=== PATIENT | female | born 1980 | race Caucasian/White ===

== ENCOUNTER 2022-07-08 11:24 | Emergency (ER) | payer OTHER, SELFPAY ==
[2022-07-08] VITALS (9 sets, daily range): BP systolic 112–146; BP diastolic 74–90; PULSE 74–79; RESP 16; TEMP 37.1; O2SAT 99–100
--- NOTE | ~2022-07-08 | CT_ITS ---
EXAMINATION: CT brain wo con DATE: 07/08/2022 15:00 INDICATION: Head injury. Altered mental status. TECHNIQUE: Computed tomography (CT) of the head was performed without intravenous contrast. The mA wa s adjusted according to patient size. Iterative reconstruction technique was employed. The dose-lengt h product was 529.67 mGy-cm. COMPARISON: Head CT 02/15/2011 FINDINGS: There is no intracranial hemorrhage, acute infarction, or abnormal intracranial mass lesion . The ventricles are normal in size. There is mucosal thickening in the paranasal sinuses. The orbits are normal. The mastoid air cells are normal. IMPRESSION: 1. Normal brain. Reviewed, dictated and finalized at location A. IMPRESSION: 1. Normal brain.
--- NOTE | 2022-07-08 11:57 | ED.HEATRA ---
HPI - Head Injury General Chief complaint: Head Injury Stated complaint: head injury Time Seen by Provider: 07/08/22 11:43 History of Present Illness HPI Narrative: 42-year-old female here with her daughter for evaluation of confusion. Patient was hit in the forehead with a broom by her toddler nephew very lightly yesterday and states that since then she has felt confused and disoriented. Patient's daughter states that she called 911 and patient was evaluated at [facility] yesterday. She had an EKG and a head CT that was normal. Patient states that she has been confused since then, not knowing her name or where she is. Also notes nausea but no vomiting. No fevers, chills, abdominal pain, dysuria, urgency, frequency, visual changes. Related Data Allergies Allergy/AdvReac Type Severity Reaction Status Date / Time No Known Allergies Allergy Verified 07/08/22 11:30 Review of Systems Review of Systems: Gen: Denies fevers or chills Eyes: Denies eye pain or visual change ENT: Denies congestion Respiratory: Denies shortness of breath or cough CV: Denies chest pain or palpitations GI: Reports nausea. Denies abdominal pain emesis or diarrhea : denies burning, urgency, frequency or hematuria Musculoskeletal: Denies back pain or muscle pain Neuro: Reports confusion. Denies numbness, tingling, weakness or focal weakness Skin: Denies rash Except as documented, all other systems reviewed and negative Exam Narrative: APPEARANCE: Well appearing, no pain in distress, well-nourished. Head: Normocephalic and atraumatic. EYES: PERRLA/EOMI, conjunctivae clear NOSE: No nasal drainage EARS: External ear normal in appearance THROAT: Oropharynx is clear. Mucous membranes are moist. NECK: Supple. No adenopathy, no masses. RESPIRATORY: Airway patent, respirations nonlabored. Clear to auscultation bilaterally, no rales, rhonchi, wheezing. CARDIOVASCULAR: Regular rate and rhythm without murmurs, rubs, or gallops. ABDOMINAL: Normoactive bowel sounds. Soft, nontender, nondistended. No rebound tenderness or guarding. MUSCULOSKELETAL: Extremities are warm and well-perfused. Moves all extremities well. No edema. NEURO: Alert and oriented x2, patient repeatedly asking where she is. Becomes tearful with questioning. Normal speech. Cranial nerves II through XII intact. [id number] normal. No focal neurologic deficits. SKIN: Skin is warm and dry. No rashes. PSYCHIATRIC: Normal affect/mood. Course Vital Signs Vital signs: Vital Signs Temperature 98.8 F 07/08/22 11:30 Pulse Rate 79 07/08/22 11:30 Respiratory Rate 16 07/08/22 11:30 Blood Pressure 139/89 07/08/22 11:30 Pulse Oximetry 100 07/08/22 11:30 Temperature 98.8 F 07/08/22 11:30 Pulse Rate 74 07/08/22 16:10 Respiratory Rate 16 07/08/22 16:10 Blood Pressure 120/80 07/08/22 16:10 Pulse Oximetry 99 07/08/22 16:10 MDM - Head Injury MDM Narrative Medical decision making narrative: 42-year-old female here for evaluation of confusion nausea and headache after very mild head injury yesterday. Here patient is nontoxic-appearing and has normal vital signs, her neurologic exam is nonfocal, patient is acting confused. Basic labs unremarkable, including TSH and free T4. Drug screen is negative. Head CT is negative. Spoke with patient's PCP who has not had much contact with patient unfortunately is unsure if she is a reliable historian, he does comment on a history of psychiatric issues. Feel that patient's confusion may be psych related given the very mild mechanism of injury yesterday. He also mentioned that she has just started Reglan which may be contributing to her symptoms. She was given Benadryl and Tylenol in the ED with slight improvement of her symptoms. Discussed at length disposition with patient and her daughter. They both feel comfortable with discharge at this time to follow-up with primary care doctor. Did offer admission to patient and
[2022-07-08] MEDS: ONDANSETRON HCL ODT 4 MG TABLET PO (12:05)
[2022-07-08 12:19] LABS: Basophils Percent Auto 0.2 % (0.2-1.2); Eosinophils Absolute Auto 0.1 K/mm3 (0-0.3); Eosinophils Percent Auto 1.1 % (0-4.4); Hematocrit 39.2 % (37.0-47.0); Hemoglobin 13.1 g/dL (12.0-15.0); Immature Granulocyte Absolute 0.01 K/mm3 (0.00-0.031); Immature Granulocyte Percent A 0.2 % (0-0.5); Immature Platelet Fraction Pct 8.1 % (0.9-11.2); Lymphocytes Absolute Auto 1.09 K/mm3 (0.9-3.2); Lymphocytes Percent Auto 24.9 % (18.3-44.2); Mean Corpuscular HGB Conc 33.4 g/dl (32-36); Mean Corpuscular Hemoglobin 28.5 pg (26-34); Mean Corpuscular Volume 85.2 fl (80-100); Mean Platelet Volume 11.3 fl (7.4-10.4); Monocytes Absolute Auto 0.3 K/mm3 (0.1-0.6); Monocytes Percent Auto 7.1 % (2.6-8.5); Neutrophils Absolute Auto 2.9 K/mm3 (1.3-6.7); Neutrophils Percent Auto 66.5 % (45.5-73.1); Platelet Count Result 150 k/mm3 (150-375); Red Cell Distribution Width 15.4 % (11.5-14.5); White Blood Count 4.4 K/mm3 (4.5-10.0)
[2022-07-08 12:58] LABS: Alanine Aminotransferase 20 U/L (6-35); Albumin Level 4.1 g/dL (3.5-5.1); Alkaline Phosphatase 77 U/L (38-126); Anion Gap 14 mmol/L (8-16); Aspartate Amino Transferase 26 U/L (14-36); Bilirubin,Total 0.5 mg/dL (0.2-1.3); Blood Urea Nitrogen 8 mg/dL (7-17); Calcium 8.7 mg/dL (8.4-10.2); Carbon Dioxide 24 mmol/L (22-30); Chloride 103 mmol/L (98-107); Estimated CRCL calculation 95 ml/min; Estimated Glomerular Filt Rate > 60; Glucose 96 mg/dL (65-110); Potassium 3.5 mmol/L (3.4-5.0); Sodium 141 mmol/L (137-145)
[2022-07-08 13:18] LABS: Free T4 Free Thyroxine 1.86 ng/mL (0.78-2.19)
[2022-07-08 13:28] LABS: Thyroid Stimulating Hormone 0.817 uIU/mL (0.465-4.680)
[2022-07-08] MEDS: diphenhydrAMINE HCl CAP 25 MG CAPSULE 50 MG PO (13:51)
[2022-07-08] MEDS: ACETAMINOPHEN 325 MG TABLET 650 MG PO (13:52)
[2022-07-08 14:25] LABS: Amphetamine Screen Urine Negative (Negative); Barbiturate Screen Urine Negative (Negative); Benzodiazepines Screen Urine Negative (Negative); Cannabinoid Screen Urine Negative (Negative); Cocaine Screen Urine Negative (Negative); Methadone Screen Urine Negative (Negative); Opiate Screen Urine Negative (Negative); Phencyclidine Screen Urine Negative (Negative)
== END 2022-07-08 16:11 | disposition home or self-care (01) ==
PROVIDERS: Physician Assistant; Emergency Provider Emergency Medicine; PCP Family Medicine
DX: F07.81 Postconcussional syndrome (principal)
CPT/HCPCS: 36415; 70450; 80053; 80307; 84439; 84443; 85025; 85055; 99284; A9270